=== PATIENT | female | born 1960 | race Caucasian/White ===

== ENCOUNTER → 2016-09-14 | Outpatient (CLI) | payer MEDICARE ==
--- NOTE | 2016-09-15 14:42 | XR ---
EXAMINATION TYPE: XR chest 2V DATE OF EXAM: 09/14/2016 4:10 PM COMPARISON: 04/07/2016 HISTORY: Cough FINDINGS: The lungs are clear and there is no pneumothorax, pleural effusion, or focal pneumonia. Hypertrophi c change of the spine. Hyperinflation suggests COPD. Surgical clip overlying the left breast. IMPRESSION: 1. No acute process.
== END | disposition home or self-care (01) ==
LOC: RADXRYALE 15:27
PROVIDERS: ATTEND Internal Medicine
DX: R05 Cough (principal)
CPT/HCPCS: 71020

== ENCOUNTER → 2017-12-02 | Outpatient (CLI) | payer MEDICARE ==
--- NOTE | 2017-12-02 10:08 | CT ---
EXAMINATION TYPE: CT chest w con DATE OF EXAM: 12/02/2017 COMPARISON: 07/11/2017 HISTORY: Solitary lung nodule CT DLP: 205.2 mGycm Automated exposure control for dose reduction was used. CONTRAST: CT scan of the chest is performed with IV Contrast, patient injected with 100 mL of Isovue 300. FINDINGS: LUNGS: There is a linear scar noted in the region of the lingula. No distinct nodule is appreciated. Mild dependent atelectasis right lung base. No concerning pulmonary nodule or mass. There is no pleur al effusion or pneumothorax seen. The tracheobronchial tree is patent. MEDIASTINUM: There are no greater than 1 cm hilar or mediastinal lymph nodes. No pericardial effusi on is seen. Thoracic aorta is of normal caliber. The heart is not enlarged. UPPER ABDOMEN: No significant abnormality appreciated. OTHER: No additional significant abnormality is seen. IMPRESSION: 1. Linear parenchymal scar in the region of the lingula without evidence for pulmonary nodule.
== END | disposition home or self-care (01) ==
LOC: RADCTMAIN 08:37
PROVIDERS: ATTEND Internal Medicine Critical Care Medicine
DX: J98.4 Other disorders of lung (principal)
CPT/HCPCS: 71260; Q9967

== ENCOUNTER → 2019-01-15 | Outpatient (CLI) | payer MEDICARE ==
--- NOTE | 2019-01-15 12:54 | CTL ---
EXAMINATION TYPE: CT Low Dose Lung DATE OF EXAM ORDERED: 01/15/2019 HISTORY: Long-term tobacco use. Lung cancer screening CT DLP: 62.[address] CTDI: 1.9 mGy Automated exposure control for dose reduction was used. SCREENING VISIT: Second visit COMPARISON: Low-dose lung screening CT July 11, 2017. Chest CT December 02, 2017 TECHNIQUE: Low dose computed tomography scan was performed through the chest at 1 mm thick sections a nd reconstructed images in the coronal plane at [address] DIAGNOSTIC QUALITY: Satisfactory FINDINGS: LUNG NODULES: Present, detailed below: Stable 2 mm subpleural nodule lateral right upper lobe axial image 54. Stable 8 x 4 mm nodular scarring in the lingula axial image 154 with adjacent linear scarring extensi on redemonstrated. New 3 mm nodule axial image 103 anterolateral left mid lung. Stable calcified 2 to 3 mm nodule or granuloma axial image 93. LUNGS: COPD: Severity: Mild to moderate Fibrosis: Severity: Mild scattered Lymph nodes: None Other findings: None. BILATERAL PLEURAL SPACE: Effusion: None. Calcification: None. Thickening: None. Pneumothorax: None. HEART: Heart Size: Normal Coronary calcification: None Pericardial effusion: None OTHER FINDINGS: Upper abdomen: None Bony thorax: Mild multilevel spurring Supraclavicular region: None Other: Dystrophic calcification likely from left-sided excisional biopsy lateral left breast placemen t 111 is redemonstrated. IMPRESSION: Stable small nodules and areas of nodular scarring. New [address] FOLLOW UP [address] CHEST RECOMMENDATION: Annual low-dose lung screening CT. CT LUNG RAD: Lung-Rad 2 Benign Appearance or Behavior
== END | disposition home or self-care (01) ==
LOC: RADCTMAIN 11:09
PROVIDERS: ATTEND Family Medicine
DX: Z12.2 Encounter for screening for malignant neoplasm of respiratory organs (principal); R91.8 Other nonspecific abnormal finding of lung field; J98.4 Other disorders of lung; Z87.891 Personal history of nicotine dependence

== ENCOUNTER → 2019-05-07 | Outpatient (CLI) | payer MEDICARE ==
--- NOTE | 2019-05-07 11:30 | MR ---
EXAMINATION TYPE: MR brain wo/w con DATE OF EXAM: 05/07/2019 COMPARISON: None HISTORY: Headache, unusual duration TECHNIQUE: Multiplanar, multisequence images of the brain and brainstem is performed without and with IV contras t, utilizing 5.5 mL intravenous Gadavist . FINDINGS: Diffusion weighted images demonstrate no evidence of a recent infarct or other diffusion ab normality. There is mild generalized degenerative change. There is a few scattered areas of focal abnormal signa l the white matter. All measure less than 5 mm. No enhancing lesions. Midline structures demonstrate normal morphology. The craniocervical junction appears within normal limits. Post contrast images demonstrate no abnormal enhancement. The dural venous sinuses appear pa tent. Changes of mild chronic sinusitis. IMPRESSION: 1. Minimal nonspecific white matter changes in the differential diagnosis includes remote microvascul ar ischemia, migraine headaches, hypertension, demyelinating process not excluded.
== END | disposition home or self-care (01) ==
LOC: RADMRIMAIN 09:50
PROVIDERS: ATTEND Physician Assistant
DX: R51 Headache (principal)
CPT/HCPCS: 70553; A9585

== ENCOUNTER → 2020-06-26 | Outpatient (CLI) | payer MEDICARE ==
--- NOTE | 2020-06-26 20:46 | US ---
EXAMINATION TYPE: US carotid duplex BILAT DATE OF EXAM: 06/26/2020 COMPARISON: MR, CT CLINICAL HISTORY: R42 Dizziness. Dizziness. Smoker. EXAM MEASUREMENTS: RIGHT: Peak Systolic Velocity (PSV) cm/sec ----- Right CCA: 61.6 ----- Right ICA: 88.3 ----- Right ECA: 63.0 ICA/CCA ratio: 1.4 RIGHT: End Diastole cm/sec ----- Right CCA: 21.5 ----- Right ICA: 32.2 ----- Right ECA: 17.9 LEFT: Peak Systolic Velocity (PSV) cm/sec ----- Left CCA: 62.2 ----- Left ICA: 84.0 ----- Left ECA: 51.5 ICA/CCA ratio: 1.4 LEFT: End Diastole cm/sec ----- Left CCA: 21.2 ----- Left ICA: 34.3 ----- Left ECA: 14.4 VERTEBRALS (direction of flow): Right Vertebral: Antegrade Left Vertebral: Antegrade Rhythm: Normal Intimal thickening seen bilaterally. Left ECA quickly dives posterior. No elevated velocities at this time. Hypoechoic area seen within right neck measurin.9 x 0.6 x 0.5 cm. Hypoechoic area with hyperechoic center seen left neck measurin.5 x 0.5 x 0.3 cm. IMPRESSION: 1. Intimal thickening present without evidence of flow-limiting stenosis based on velocities. 2. There may be a couple small lymph nodes present within the neck. Criteria for Assigning % of Stenosis / Diameter reduction (Estimation based on the indirect measurements of the internal carotid artery velocities (ICA PSV). 1. Normal (no stenosis)=ICA PSV < 125 cm/s: ratio < 2.0: ICA EDV<40 cm/s. 2. Less than 50% stenosis=ICA PSV < 125 cm/s: ratio < 2.0: ICA EDV<40 cm/s. 3. 50 to 69% stenosis=ICA PSV of 125 to 230 cm/s: ration 2.0 ? 4.0: ICA EDV 40-100 cm/s. 4. Greater than 70% stenosis to near occlusion= ICA PSV > 230 cm/s: ratio > 4.0: ICA EDV > 100 cm/s. 5. Near occlusion= ICA PSV velocities may be low or undetectable: variable ratio and ICA EDV. 6. Total occlusion=unable to detect flow.
== END | disposition home or self-care (01) ==
LOC: RADUSWWP 16:53
PROVIDERS: ATTEND Psychiatry & Neurology Neurology
DX: I77.89 Other specified disorders of arteries and arterioles (principal)
CPT/HCPCS: 93880

== ENCOUNTER 2020-10-17 08:32 | Day surgery (SDC) | payer MEDICARE ==
[2020-10-15 14:26] VITALS: BMI 24.4
[~2020-10-17 08:32] MED LIST: LACTATED RINGERS 1,000 ML IV SCH
[2020-10-17] MEDS ORDERED: LIDOCAINE 1% (10MG/ML) FOR IV START INTRADERMA ONE (09:36)
[2020-10-17 09:40] VITALS: RESP 20; TEMP 97.3
[2020-10-17] MEDS ORDERED: PROPOFOL 10 MG/ML 20 ML VIAL IV ONE (09:48)
[2020-10-17] MEDS ORDERED: LIDOCAINE 1% INJ 10MG/ML (20 ML MDV) ONE (09:48)
--- NOTE | 2020-10-17 09:54 | P.GSHP ---
History of Present Illness H&P Date: 10/17/20 Chief Complaint: GERD, dysphagia This a 5-year-old female who presents today for EGD. She's been issues GERD and dysphagia. Past Medical History Past Medical History: Asthma, Cancer, COPD, GERD/Reflux Additional Past Medical History / Comment(s): osteopenia,migraines,left breast CA-2008 received chemo and radiation,cervical dysplasia History of Any Multi-Drug Resistant Organisms: None Reported Past Surgical History: Breast Surgery, Orthopedic Surgery Additional Past Surgical History / Comment(s): never burned neck,left thumb and carpel tunnel, left breast lumpectomy Past Anesthesia/Blood Transfusion Reactions: No Reported Reaction Smoking Status: Current every day smoker - Past Family History Mother Family Medical History: Myocardial Infarction (DC) Brother(s) Family Medical History: Coronary Artery Disease (CAD) Sister(s) Family Medical History: Coronary Artery Disease (CAD) Father Family Medical History: Myocardial Infarction (DC) Medications and Allergies Home Medications Medication Instructions Recorded Confirmed Type Albuterol Nebulized (Conc) 2.5 mg INHALATION Q6H PRN 10/15/20 10/17/20 History [Ventolin Nebulized (Conc)] Alendronate Sodium [Binosto] 70 mg PO WEEKLY 10/15/20 10/17/20 History Atorvastatin [Lipitor] 40 mg PO HS 10/15/20 10/17/20 History Budesonide/Formoterol Fumarate 2 puff INHALATION BID 10/15/20 10/17/20 History [Symbicort 160-4.5 Mcg Inhaler] Calcium Carbonate/Vitamin D3 1 each PO DAILY 10/15/20 10/17/20 History [Calcium 600-Vit D3 20 Mcg (800 Iu)] DULoxetine HCL [Cymbalta] 30 mg PO HS 10/15/20 10/17/20 History DULoxetine HCL [Cymbalta] 60 mg PO QAM 10/15/20 10/17/20 History Ergocalciferol [Vitamin D2 (1250 1,250 mcg PO WEEKLY 10/15/20 10/17/20 History Mcg = 50441 Iu)] Fish Oil/Dha/Epa [Fish Oil 1,200 1 each PO BID 10/15/20 10/17/20 History mg Fish Oil] Fluticasone Nasal [place] [Flonase 1 spray EA NOSTRIL BID 10/15/20 10/17/20 History Nasal [place]] HYDROcodone/APAP 5-325MG [[place] 1 tab PO DAILY PRN 10/15/20 10/17/20 History 5-325] Ibuprofen 600 mg PO Q8H PRN 10/15/20 10/17/20 History Montelukast Sodium [Singulair] 10 mg PO QAM 10/15/20 10/17/20 History Umeclidinium [place] [Incruse 1 puff INHALATION 1600 10/15/20 10/17/20 History Ellipta] Vitamin E 400 unit PO DAILY 10/15/20 10/17/20 History Zonisamide [Zonegran] 100 mg PO BID 10/15/20 10/17/20 History Allergies Allergy/AdvReac Type Severity Reaction Status Date / Time aspirin AdvReac severe Verified 10/17/20 09:17 gastritis Surgical - Exam Vital Signs Temp Pulse Resp BP Pulse Ox 97.3 F L 89 20 148/83 96 10/17/20 09:39 10/17/20 09:39 10/17/20 09:39 10/17/20 09:39 10/17/20 09:39 - General well developed, well nourished, no distress - Eyes PERRL - ENT normal pinna - Neck no masses - Respiratory normal expansion - Cardiovascular Rhythm: regular - Abdomen Abdomen: soft, non tender Assessment and Plan Assessment: GERD, dysphagia. We'll perform EGD.
--- NOTE | 2020-10-17 10:01 | P.OP ---
Date of Procedure: 10/17/20 Preoperative Diagnosis: GERD Postoperative Diagnosis: Antral gastritis Esophagitis Procedure(s) Performed: EGD Anesthesia: MAC Surgeon: Sd Hauser Pathology: other (Antrum, esophagus) Condition: stable Description of Procedure: The patient's placed on the endoscopy table in the lateral position. She received IV sedation. The gastroscope placed oropharynx passed in the esophagus and stomach. Scope was then placed through the pylorus. First and second portion duodenum appeared normal. Scope was then brought back the antrum and this appeared mildly inflamed. Biopsies performed. Scope was then retroflexed and the meters stomach appeared normal. There was a very small hiatal hernia. The GE junction was at 39 7 is. The distal esophagus appeared inflamed and a biopsies performed. The proximal esophagus appeared normal. Scope was withdrawn for patient.
[2020-10-17 10:17] VITALS: BP 144/91; PULSE 84
== END 2020-10-17 10:49 | disposition home or self-care (01) ==
LOC: ORWHC2ENDO 08:32
PROVIDERS: ATTEND Surgery
DX: K31.9 Disease of stomach and duodenum, unspecified (principal); K29.70 Gastritis, unspecified, without bleeding; K21.00 Gastro-esophageal reflux disease with esophagitis, without bleeding; K44.9 Diaphragmatic hernia without obstruction or gangrene; J44.9 Chronic obstructive pulmonary disease, unspecified; M85.80 Other specified disorders of bone density and structure, unspecified site; G43.909 Migraine, unspecified, not intractable, without status migrainosus; F17.200 Nicotine dependence, unspecified, uncomplicated; Z79.83 Long term (current) use of bisphosphonates; Z79.1 Long term (current) use of non-steroidal anti-inflammatories (NSAID); Z79.891 Long term (current) use of opiate analgesic; Z79.51 Long term (current) use of inhaled steroids; Z79.899 Other long term (current) drug therapy; Z85.3 Personal history of malignant neoplasm of breast; Z92.21 Personal history of antineoplastic chemotherapy; Z92.3 Personal history of irradiation; Z87.410 Personal history of cervical dysplasia; Z82.49 Family history of ischemic heart disease and other diseases of the circulatory system; Z88.6 Allergy status to analgesic agent; Z98.890 Other specified postprocedural states
CPT/HCPCS: 88305; 43239; J2001; J2704

== ENCOUNTER → 2021-11-09 | Outpatient (CLI) | payer MEDICARE ==
[2021-11-10 13:37] LABS: Coronavirus SARS CoV-2 Not Detected (Not Detected)
== END | disposition home or self-care (01) ==
LOC: LABWHC1 11:50
PROVIDERS: ATTEND Psychiatry & Neurology Neurology
DX: Z01.812 Encounter for preprocedural laboratory examination (principal); Z20.822 Contact with and (suspected) exposure to COVID-19

== ENCOUNTER → 2022-04-09 | Outpatient (CLI) | payer MEDICARE, OTHER ==
[2022-04-09 12:57] VITALS: BP 131/84; PULSE 84; RESP 17; TEMP 97.9
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
== END ==
LOC: WWCWWP 12:41
PROVIDERS: ATTEND Surgery
DX: Z08 Encounter for follow-up examination after completed treatment for malignant neoplasm (principal); R92.8 Other abnormal and inconclusive findings on diagnostic imaging of breast; Z85.3 Personal history of malignant neoplasm of breast; F32.A Depression, unspecified; I10 Essential (primary) hypertension; M54.9 Dorsalgia, unspecified; Z98.890 Other specified postprocedural states; F17.210 Nicotine dependence, cigarettes, uncomplicated; J44.9 Chronic obstructive pulmonary disease, unspecified; G43.909 Migraine, unspecified, not intractable, without status migrainosus; Z79.51 Long term (current) use of inhaled steroids; Z88.6 Allergy status to analgesic agent

== ENCOUNTER → 2022-04-26 | Outpatient (CLI) | payer MEDICARE, OTHER ==
--- NOTE | 2022-04-26 09:20 | USB ---
Patient History: Menarche at age 10. Risk Values: Geno 5 year model risk: 1.2%. NCI Lifetime model risk: 5.5%. Technique: Method: Targeted. Prior Study Comparison: 08/16/1997 Bilateral Screening Mammogram, [facility]. 02/13/2001 Bilateral Screening Mammogram, [facility]. 02/28/2001 Right Special View Mammogram, [facility]. Findings: The axilla of the right breast was scanned. Targeted scanning of the right axilla. Patient has right-sided ultrasound-guided biopsy scheduled for 2 days from now. There are benign-appearing lymph nodes in the left axilla, largest measuring 8 x 6 x 5 mm and 11 x 10 x 5 mm. No abnormal cortical thickening is seen. Overall Assessment: Suspicious, BI-RAD 4 Management: Ultrasound Core Biopsy of the right breast. Proceed with planned ultrasound-guided core needle biopsy of the right breast. No suspicious right axillary lymph nodes are seen. Electronically signed and approved by: Larry Grullon M.D. Radiologist
== END | disposition home or self-care (01) ==
LOC: RADUSWWP 08:25
PROVIDERS: ATTEND Surgery
DX: Z85.3 Personal history of malignant neoplasm of breast (principal)

== ENCOUNTER → 2022-07-15 | Outpatient (CLI) | payer MEDICARE, OTHER ==
[2022-07-15 15:16] VITALS: BP 118/78; PULSE 89; RESP 18; TEMP 98.3
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
== END | disposition home or self-care (01) ==
LOC: WWCWWP 14:48
PROVIDERS: ATTEND Surgery
DX: Z53.9 Procedure and treatment not carried out, unspecified reason (principal)

== ENCOUNTER → 2022-09-16 | Outpatient (CLI) | payer MEDICARE, OTHER ==
--- NOTE | 2022-09-16 13:26 | CTL ---
EXAMINATION TYPE: CT Low Dose Lung DATE OF EXAM ORDERED: 09/16/2022 HISTORY: . Lung cancer screening CT DLP: 1.[address] CTDI: 63.50 mGy Automated exposure control for dose reduction was used. SCREENING VISIT: COMPARISON: 01/15/2019 TECHNIQUE: Low dose computed tomography scan was performed through the chest at 1 mm thick sections a nd reconstructed images in multiple planes at 1 mm and [address] DIAGNOSTIC QUALITY: Satisfactory FINDINGS: Stable 2 mm subpleural nodule right upper lobe. Additional new 2 mm nodule right upper lobe subpleural anterior segment. There is a 4.4 mm subpleural nodule lingular segment left upper lobe axial image 192 retrospectively stable from prior exam. Calcified 2 mm nodule left upper lobe has a benign appearance. Nodular appearing consolidation scarring favored over pulmonary nodule lingular segment left upper lo be stable prior exam. There is mild emphysematous changes. Interlobular septal thickening at the lung bases posteriorly ass ociated with mild chronic pulmonary fibrosis. No pleural effusion, pneumothorax or focal pneumonia. Heart size normal. Aorta normal caliber with mi ld atherosclerotic changes. Hypertrophic and degenerative changes spine. Calcification within the breast again noted and stable. IMPRESSION: 1. COPD with multiple stable-appearing nodules with one new additional 3 mm nodule right lung apex. F indings are likely benign. CT LUNG RAD AND CT CHEST RECOMMENDATION: Lung-Rad 2 Benign Appearance or Behavior: Continue annual sc reening with LDCT in 12 months.
== END | disposition home or self-care (01) ==
LOC: RADCTMAIN 11:59
PROVIDERS: ATTEND Internal Medicine Critical Care Medicine
DX: Z12.2 Encounter for screening for malignant neoplasm of respiratory organs (principal); J44.9 Chronic obstructive pulmonary disease, unspecified; R91.8 Other nonspecific abnormal finding of lung field; Z87.891 Personal history of nicotine dependence
CPT/HCPCS: 71271

== ENCOUNTER → 2022-12-01 | Outpatient (CLI) | payer MEDICARE ==
--- NOTE | 2022-12-01 15:27 | USB ---
Reason for Exam: Follow-up at short interval from prior study. Patient History: Menarche at age 10. Postmenopausal. Breast cancer, left, age 47. 2007, Lumpectomy on the Left side. 04/28/2022, Benign US biopsy breast VAD RT on the right side. Technique: Method: Targeted. Prior Study Comparison: 07/09/2021 Bilateral MG diagnostic mammo w CAD AZIZA - 2, [facility]. 04/28/2022 Right MG diagnostic mammo RT wo [facility], [facility]. 07/15/2022 Bilateral MG 3D diag mammo w/cad AZIZA, [facility]. Findings: The upper outer quadrant of the right breast, the axilla of the right breast and the retroareolar of the right breast were scanned. No solid or cystic masses are identified.. Postbiopsy changes noted right breast. Overall Assessment: Benign, BI-RAD 2 Management: Screening Mammogram of both breasts in 6 months. A clinical breast exam by your physician is recommended on an annual basis and results should be correlated with mammographic findings. This exam should not preclude additional follow-up of suspicious palpable abnormalities. Results were given to the patient verbally at the time of exam. Electronically signed and approved by: Joseph Garcia M.D. Radiologis
== END | disposition home or self-care (01) ==
LOC: RADUSWWP 14:48
PROVIDERS: ATTEND Family Medicine
DX: R92.8 Other abnormal and inconclusive findings on diagnostic imaging of breast (principal); Z78.0 Asymptomatic menopausal state

== ENCOUNTER → 2023-02-18 | Outpatient (CLI) | payer MEDICARE ==
--- NOTE | 2023-02-18 14:44 | CT ---
EXAMINATION TYPE: CT abdomen pelvis w con DATE OF EXAM: 02/18/2023 COMPARISON: None HISTORY: lump to posterior RLQ. History of breast cancer CT DLP: 417.1 mGycm Automated exposure control for dose reduction was used. TECHNIQUE: Helical acquisition of images was performed from the lung bases through the pelvis. CONTRAST: Performed with Oral Contrast and with IV Contrast, patient injected with 100 mL of Isovue 300. FINDINGS: The lung bases are clear. The gallbladder is normal without pericholecystic fluid, wall thickening, distention or gallstones. There is no focal mass or organomegaly involving the liver, pancreas, spleen or adrenal glands. The kidneys enhance symmetrically and there is no solid renal mass or hydronephrosis. There is no retroperitoneal adenopathy or hemorrhage in the caliber the abdominal aorta is normal. There is no free intraperitoneal air or fluid. The bowel loops are normal in caliber and there is no dilatation or obstruction. There is no pelvic mass or adenopathy. The osseous structures are intact. There is a cylindrical partly metallic implanted device in the subcutaneous tissues of the upper righ t back the level of the right kidney. IMPRESSION: 1. Right upper back subcutaneous implant device. 2. No other significant abnormality seen.
== END | disposition home or self-care (01) ==
LOC: RADCTMAIN 12:04
PROVIDERS: ATTEND Family Medicine
DX: R19.09 Other intra-abdominal and pelvic swelling, mass and lump (principal)
CPT/HCPCS: 74177; Q9967

== ENCOUNTER → 2023-07-21 | Outpatient (CLI) | payer MEDICARE, OTHER ==
[2023-07-21 14:51] VITALS: PULSE 106; RESP 16; TEMP 98
== END | disposition home or self-care (01) ==
LOC: WWCWWP 13:43
PROVIDERS: ATTEND Surgery
DX: J44.89 Other specified chronic obstructive pulmonary disease (principal); K21.9 Gastro-esophageal reflux disease without esophagitis; F41.9 Anxiety disorder, unspecified; F32.A Depression, unspecified; F17.200 Nicotine dependence, unspecified, uncomplicated; G43.909 Migraine, unspecified, not intractable, without status migrainosus; Z92.3 Personal history of irradiation; Z85.3 Personal history of malignant neoplasm of breast; Z87.39 Personal history of other diseases of the musculoskeletal system and connective tissue; Z87.410 Personal history of cervical dysplasia; Z88.6 Allergy status to analgesic agent

== ENCOUNTER → 2023-07-21 | Outpatient (CLI) | payer MEDICARE, OTHER ==
--- NOTE | 2023-07-21 14:08 | MM ---
Reason for Exam: Follow-up at short interval from prior study. Last screening mammogram was performed 12 month(s) ago. Patient History: Menarche at age 10. First Full-Term at age 26. Postmenopausal. Breast cancer, left, age 47. Previous chest radiation therapy at age 47. Previous chemotherapy at age 47. 2007, Lumpectomy on the Left side. 04/28/2022, Benign US biopsy breast VAD RT on the right side. Prior Study Comparison: 06/13/2019 Bilateral MG diagnostic mammo w CAD AZIZA - 2, [facility]. 07/02/2020 Bilateral MG diagnostic mammo w CAD AZIZA - 2, [facility]. 07/15/2022 Bilateral MG 3D diag mammo w/cad AZIZA, [facility]. 12/01/2022 Right US breast limited RT, [facility]. Tissue Density: The breast tissue is almost entirely fat. Findings: Analyzed By CAD. Benign left breast calcifications with post treatment change with surgical clips. Right breast clip. No new suspicious masses, calcifications or distortions. I. Overall Assessment: Benign, BI-RAD 2 Management: Screening Mammogram of both breasts in 1 year. Results were given to the patient verbally at the time of exam. Patient should continue monthly self-breast exams. A clinical breast exam by your physician is recommended on an annual basis. This exam should not preclude additional follow-up of suspicious palpable abnormalities. Note on Geno scores and lifetime risk: 1. A Geno score greater than 3% is considered moderate risk. If this is the case, consider specialist referral to assess eligibility for a risk reducing agent. 2. If overall lifetime risk for the development of breast cancer is 20% or higher, the patient may qualify for future screening with alternating mammogram and breast MRI. Electronically signed and approved by: Ned Heard DO
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
== END | disposition home or self-care (01) ==
LOC: RADMAMWWP 13:41
PROVIDERS: ATTEND Surgery
DX: R92.333 Mammographic heterogeneous density, bilateral breasts (principal); Z85.3 Personal history of malignant neoplasm of breast; Z78.0 Asymptomatic menopausal state
CPT/HCPCS: 77066; G0279; 77062

== ENCOUNTER 2023-08-06 17:03 | Emergency (ER) | payer MEDICARE, OTHER ==
[2023-08-06] MEDS ORDERED: LIDOCAINE 1% INJ 10MG/ML (20 ML MDV) SQ ONE (18:03)
[2023-08-06 18:19] VITALS: TEMP 98.5
--- NOTE | 2023-08-06 18:28 | ED ---
Fall HPI - General Chief Complaint: Fall Stated Complaint: facial lac Time Seen by Provider: 08/06/23 18:02 Source: patient Mode of arrival: ambulatory - History of Present Illness Initial Comments: 62-year-old female presenting to the ED with a chief complaint of fall. Patient states that she tripped and fell forward, landing on the right side of her chin. No LOC at this time. No other injuries. Patient denies being on blood thinners. Per acting her normal self. No dizziness or lightheadedness prior to fall. No chest pain shortness of breath. No other complaints. - Related Data Home Medications Medication Instructions Recorded Confirmed Alendronate Sodium [Binosto] 70 mg PO WEEKLY 10/15/20 07/21/23 Atorvastatin [Lipitor] 40 mg PO HS 10/15/20 07/21/23 Calcium Carbonate/Vitamin D3 1 each PO DAILY 10/15/20 07/21/23 [Calcium 600-Vit D3 20 Mcg (800 Iu)] DULoxetine HCL [Cymbalta] 30 mg PO HS 10/15/20 07/21/23 DULoxetine HCL [Cymbalta] 60 mg PO QAM 10/15/20 07/21/23 Fish Oil/Dha/Epa [Fish Oil 1,200 1 each PO BID 10/15/20 07/21/23 mg Fish Oil] Fluticasone Nasal [place] [Flonase 1 spray EA NOSTRIL BID 10/15/20 07/21/23 Nasal [place]] Ibuprofen 600 mg PO Q8H PRN 10/15/20 07/21/23 Vitamin E 400 unit PO DAILY 10/15/20 07/21/23 Ascorbic Acid [Vitamin C] 1,000 mg PO DAILY 04/09/22 07/21/23 Budesonide-Formot 160-4.5 Mcg 1 puff INHALATION DIRECTED PRN 04/09/22 07/21/23 [Symbicort 160-4.5 Mcg Inhaler] Cyclobenzaprine [Flexeril] 5 mg PO DIRECTED PRN 04/09/22 07/21/23 Meclizine [Antivert] 25 mg PO DAILY 04/09/22 07/21/23 Montelukast [Singulair] 10 mg PO DAILY 04/09/22 07/21/23 Omeprazole 40 mg PO DIRECTED PRN 04/09/22 07/21/23 Ondansetron [Zofran] 4 mg PO DIRECTED PRN 04/09/22 07/21/23 Umeclidinium [place] [Incruse 62.5 mcg INHALATION DIRECTED PRN 04/09/22 07/21/23 Ellipta] Vitamin C/Biotin [Hair, Skin and 2 cap PO DAILY 04/09/22 07/21/23 Nails Chew] Zinc 50 mg PO DAILY 04/09/22 07/21/23 lisinopriL [Zestril] 10 mg PO DAILY 04/09/22 07/21/23 Allergies Allergy/AdvReac Type Severity Reaction Status Date / Time aspirin AdvReac severe Verified 08/06/23 18:02 gastritis Review of Systems ROS Statement: Those systems with pertinent positive or pertinent negative responses have been documented in the HPI. ROS Other: All systems not noted in ROS Statement are negative. Past Medical History Past Medical History: Asthma, Cancer, COPD, GERD/Reflux Additional Past Medical History / Comment(s): osteopenia,migraines,left breast CA-2007 received chemo and radiation,cervical dysplasia History of Any Multi-Drug Resistant Organisms: None Reported Past Surgical History: Breast Surgery, Orthopedic Surgery Additional Past Surgical History / Comment(s): never burned neck,left thumb and carpel tunnel, left breast lumpectomy Past Anesthesia/Blood Transfusion Reactions: No Reported Reaction Past Psychological History: Anxiety, Depression Smoking Status: Current every day smoker Past Alcohol Use History: Occasional Past Drug Use History: None Reported - Past Family History Mother Family Medical History: Myocardial Infarction (GA) Brother(s) Family Medical History: Coronary Artery Disease (CAD) Sister(s) Family Medical History: Coronary Artery Disease (CAD) Father Family Medical History: Myocardial Infarction ([place]) General Exam Limitations: no limitations General appearance: alert, in no apparent distress Head exam: Present: other (Laceration the patient's chin. No kendrick signs or raccoons eyes.) Eye exam: Present: normal appearance Respiratory exam: Present: normal lung sounds bilaterally Cardiovascular Exam: Present: regular rate, normal rhythm GI/Abdominal exam: Present: soft Neurological exam: Present: alert, oriented X3, CN II-XII intact, other (Strength And sensation equal and intact of bilateral upper and lower extremities. No difficulties ambulating.) Skin exam: Present: warm, dry Course Vital Signs 11/25/23 17:59 Temperature 98.5 F Pulse Rate 97 Respiratory 20 Rate Blood Pressure 110/72 O2 Sat by Pulse 98 Oximetry Medical Decision Making - Medical Decision Making Was pt. sent in by a medical professional or institution (NILAY Tripathi, PUBLIC WORKS MANAGER, urgent care, hospital, or correction...) When possible be specific @ -No Did you speak to anyone other than the patient for history (EMS, parent, family, police, friend...)? What history was obtained from this source @ -No Did you review nursing and triage notes (agree or disagree)? Why? @ -I reviewed and agree with nursing and triage notes Were old charts reviewed (outside hosp., previous admission, EMS record, old EKG, old radiological studies, urgent care reports/EKG's, correction records)? Report findings @ -No old charts were reviewed Differential Diagnosis (chest pain, altered mental status, abdominal pain women, abdominal pain men, vaginal bleeding, weakness, fever, dyspnea, syncope, headache, dizziness, GI bleed, back pain, seizure, CVA, palpatations, mental health, musculoskeletal)? @ -Acute traumatic hemorrhage, acute fracture. This is not meant to be an all- inclusive list. EKG interpreted by me (3pts min.). @ -None X-rays interpreted by me (1pt min.). @ -None done CT interpreted by me (1pt min.). @ -CT of the brain and C-spine interpreted by me showing no evidence of fracture or other acute findings. U/S interpreted by me (1pt. min.). @ -None done What testing was considered but not performed or refused? (CT, X-rays, U/S, labs)? Why? @ -None What meds were considered but not given or refused? Why? @ -None Did you discuss the management of the patient with other professionals (professionals i.e. NILAY Tripathi, PUBLIC WORKS MANAGER, lab, RT, psych nurse, social science teacher, auto brake technician, teacher, contracts officer, nurse outreach case manager)? Give summary @ -No Was smoking cessation discussed for >3mins.? @ -No Was critical care preformed (if so, how long)? @ -No Were there social determinants of health that impacted care today? How? (Homelessness, low income, unemployed, alcoholism, drug addiction, transportation, low edu. Level, literacy, decrease access to med. care, [facility], rehab)? @ -No Was there de-escalation of care discussed even if they declined (Discuss DNR or withdrawal of care, Hospice)? DNR status @ -No What co-morbidities impacted this encounter? (DM, HTN, Smoking, COPD, CAD, Cancer, CVA, ARF, Chemo, Hep., AIDS, mental health diagnosis, sleep apnea, morbid obesity)? @ -None Was patient admitted / discharged? Hospital course, mention meds given and route, prescriptions, significant lab abnormalities, going to OR and other pertinent info. @ -Discharge 62-year-old female presenting to the ED status post mechanical fall with injury to her chin. This was repaired. For further details please see seizure note. Following wound was covered with antibiotic ointment and dressed. Neuro exam at this time unremarkable with good exam. Nerves II through XII and no strength or sensation deficits of bilateral upper and lower extremity. Discharged home in stable condition. Discussed return precautions with patient verbalizes agreement. Undiagnosed new problem with uncertain prognosis? @ -No Drug Therapy requiring intensive monitoring for toxicity (Heparin, Nitro, Insulin, Cardizem)? @ -No Were any procedures done? @ -No Diagnosis/symptom? @ -s/p mechanical fall, laceration Acute, or Chronic, or Acute on Chronic? @ -Acute Uncomplicated (without systemic symptoms) or Complicated (systemic symptoms)? @ -Uncomplicated Side effects of treatment? @ -No Exacerbation, Progression, or Severe Exacerbation? @ -No Poses a threat to life or bodily function? How? (Chest pain, [place], [place], pneumonia, PE, COPD, DKA, ARF, appy, cholecystitis, CVA, Diverticulitis, Homicidal, Suicidal, threat to staff... and all critical care pts) @ -No Disposition Clinical Impression: Laceration, Head injury Disposition: HOME SELF-CARE Condition: Good Instructions (If sedation given, give patient instructions): Fall Prevention for Older Adults (ED) Additional Instructions: Please return to the Emergency Department if symptoms worsen or any other concerns. Return in 4-5 days for suture removal. Monitor for signs of infection. Is patient prescribed a controlled substance at d/c from ED?: No Referrals: Ileana Sen DO [Primary Care Provider] - 1-2 days Time of Disposition: 19:49
--- NOTE | 2023-08-06 18:54 | CT ---
EXAMINATION TYPE: CT brain cspine wo con CT DLP: 1268.3 mGycm, Automated exposure control for dose reduction was used. DATE OF EXAM: 08/06/2023 6:30 PM COMPARISON: None. CLINICAL INDICATION:Female, 62 years old with history of pain; FALL, open wound to mandible. TECHNIQUE: Brain: Multiple axial CT images of the brain were obtained without IV contrast. Cspine: Axial CT images from the skull base to the inferior aspect of T2 we obtained without intraven ous contrast. Coronal and sagittal reformatted images were also reviewed. FINDINGS: Brain: Extra-axial spaces: No abnormal extra-axial fluid collections. Ventricular system: Appear dilated in proportion to the degree of cerebral atrophy. Cerebral parenchyma: No increased attenuation to suggest acute intraparenchymal hemorrhage. The gra y-white matter interface appears maintained. Mild generalized brain atrophy. Scattered hypoattenuat ing areas are seen within the cerebral white matter, nonspecific but most often seen with chronic vasquez rovascular ischemic changes; mild in degree. Cerebellum: No acute abnormality. Mass effect: No evidence of mass effect or midline shift. Intracranial vasculature: Unremarkable Soft tissues: Normal. Visualized orbits: Orbital contents appear grossly intact. Calvarium/osseous structures: No evidence of calvarial fracture. Paranasal sinuses and mastoid air cells: Small polypoid mucosal thickening partially seen along the m edial wall of the left maxillary sinus, and in a right posterior ethmoid air cell. No significant flu id accumulation. Other: Partially seen radiodensity at the posterior aspect of the spinal canal C1-C2 level, compatibl e with tip of a neural stimulator based on shop supervisor view. MRI is more sensitive for detecting acute processes such as infarct, and may be considered if clinica lly warranted. Cervical spine: Fracture: None seen. Osseous structures, spinal canal/neural foramina: Multilevel degenerative disc disease changes with e ndplate spurring, disc osteophyte complexes, facet arthropathy; this is overall mild/moderate in degr ee. This is greatest at the C4-C5, C5-C6, C6-C7 levels where there is at least mild to moderate spina l canal stenosis and left greater than right neural foraminal stenosis. Vertebral alignment: No traumatic malalignment. Straightening and reversal of the normal cervical jessica dosis, can be due to pain, spasm, degenerative changes, presence of cervical collar. Trace anterolist hesis C3 on C4, appears degenerative. Neck soft tissues: No acute finding.. Neurostimulator leads enter the spinal canal at the T1 level, a scending before terminating in the posterior canal at the C1-C2 level Other: Lung apices show no acute infiltrate or pneumothorax. Moderate emphysematous changes. IMPRESSION: CT head: 1. No acute intracranial CT abnormality. Mild atrophy and chronic microvascular ischemic changes. CT cervical spine: 1. No evidence of cervical spine fracture or traumatic malalignment. 2. Mild/moderate cervical spondylosis. 3. Moderate pulmonary emphysematous changes.
[2023-08-06] MEDS ORDERED: DIPH,PERTUS(ACELL)TETVAC-LF 0.5 ML VIAL IM ONE (19:08)
[2023-08-06] MEDS ORDERED: ACETAMINOPHEN TAB 500 MG TAB PO STA (19:09)
[2023-08-06] MEDS ORDERED: BACITRACIN OINT 1 EACH PACKET TOPICAL ONE (19:13)
[2023-08-06 20:23] VITALS: BP 127/73; PULSE 66; RESP 18
== END 2023-08-06 20:00 | disposition home or self-care (01) ==
LOC: EC 17:03
DX: S01.81XA Laceration without foreign body of other part of head, initial encounter (principal); I67.82 Cerebral ischemia; M47.812 Spondylosis without myelopathy or radiculopathy, cervical region; J44.89 Other specified chronic obstructive pulmonary disease; K21.9 Gastro-esophageal reflux disease without esophagitis; F17.200 Nicotine dependence, unspecified, uncomplicated; Z86.59 Personal history of other mental and behavioral disorders; Z79.51 Long term (current) use of inhaled steroids; Z79.899 Other long term (current) drug therapy; Z88.6 Allergy status to analgesic agent; Z23 Encounter for immunization; W18.30XA Fall on same level, unspecified, initial encounter
CPT/HCPCS: 72125; 70450; 90715; 99284; 90471; J2001

== ENCOUNTER → 2023-08-22 | Outpatient (CLI) | payer MEDICARE, OTHER ==
--- NOTE | 2023-08-23 09:21 | CTL ---
EXAMINATION TYPE: CT Low Dose Lung DATE OF EXAM ORDERED: 08/22/2023 COMPARISON: 09/16/2022 HISTORY: . Low Dose CT Lung Screening CT DLP: 64.[address] CTDI: 2.10 mGy IV CONTRAST USED: None. SCREENING VISIT: First visit COMPARISON: None. TECHNIQUE: Low dose computed tomography scan was performed through the chest at 1 millimeter thick se ctions and reconstructed images in the coronal plane at [address] DIAGNOSTIC QUALITY: Satisfactory FINDINGS: LUNG NODULES: Sub-5 mm pulmonary nodules are unchanged. No new nodules present. LUNGS: COPD: Severity: Mild Fibrosis: Severity:None Lymph nodes: None Other findings: None RIGHT PLEURAL SPACE: Effusion: None Calcification: None Thickening: None Pneumothorax: None LEFT PLEURAL SPACE: Effusion: None Calcification: None Thickening: None Pneumothorax: None HEART: Heart Size: Mildly enlarged Coronary calcification: Mild Pericardial effusion: None OTHER FINDINGS: Upper abdomen: No significant abnormality Bony thorax: Degenerative changes Supraclavicular region: No significant abnormalityOther: No significant abnormalityI IMPRESSION: Benign FOLLOW UP CT CHEST RECOMMENDATION: Follow-up screening in one year CT LUNG RAD: LUNG RAD CATEGORY 2 benign appearance and/or behavior
== END | disposition home or self-care (01) ==
LOC: RADCTMAIN 15:15
PROVIDERS: ATTEND Internal Medicine Critical Care Medicine
DX: Z12.2 Encounter for screening for malignant neoplasm of respiratory organs (principal); F17.210 Nicotine dependence, cigarettes, uncomplicated
CPT/HCPCS: 71271

== ENCOUNTER → 2024-08-03 | Outpatient (CLI) | payer MEDICARE, OTHER ==
--- NOTE | 2024-08-03 14:44 | MM ---
Reason for Exam: Screening (asymptomatic). Last screening mammogram was performed 12 month(s) ago. Patient History: Menarche at age 10. First Full-Term at age 26. Postmenopausal. Breast cancer, left, age 47. Previous chest radiation therapy at age 47. Previous chemotherapy at age 47. 2007, Lumpectomy on the Left side. 04/28/2022, Benign US biopsy breast VAD RT on the right side. Prior Study Comparison: 04/28/2022 Right MG diagnostic mammo RT wo CAD, [facility]. 07/15/2022 Bilateral MG 3D diag mammo w/cad AZIZA, [facility]. 07/21/2023 Bilateral MG 3D diag mammo w/cad AZIZA, [facility]. Tissue Density: There are scattered areas of fibroglandular density. Findings: Analyzed By CAD. Left breast surgical clips. Right breast: There is no suspicious group of microcalcifications or new suspicious mass. Benign-appearing calcifications right breast. Left breast: There is no suspicious group of microcalcifications or new suspicious mass. Benign-appearing calcifications left breast. Overall Assessment: Benign, BI-RAD 2 Management: Screening Mammogram of both breasts in [address] [facility] will attempt to contact patient to return for supplemental views and ultrasound if indicated. Patient should continue monthly self-breast exams. A clinical breast exam by your physician is recommended on an annual basis. This exam should not preclude additional follow-up of suspicious palpable abnormalities. Note on Geno scores and lifetime risk: 1. A Geno score greater than 3% is considered moderate risk. If this is the case, consider specialist referral to assess eligibility for a risk reducing agent. 2. If overall lifetime risk for the development of breast cancer is 20% or higher, the patient may qualify for future screening with alternating mammogram and breast MRI. [facility], , 08/03/2024 2:38 PM. Electronically signed and approved by: Ned Heard DO
== END | disposition home or self-care (01) ==
LOC: RADMAMWWP 13:05
PROVIDERS: ATTEND Family Medicine
DX: Z12.31 Encounter for screening mammogram for malignant neoplasm of breast (principal); Z85.3 Personal history of malignant neoplasm of breast; Z78.0 Asymptomatic menopausal state; R92.323 Mammographic fibroglandular density, bilateral breasts
CPT/HCPCS: 77063; 77067

== ENCOUNTER → 2024-08-29 | Outpatient (CLI) | payer MEDICARE, OTHER ==
--- NOTE | 2024-08-29 18:11 | CTL ---
EXAMINATION TYPE: CT Low Dose Lung DATE OF EXAM: 08/29/2024 5:01 PM COMPARISON: 08/22/2023 CLINICAL INDICATION: Female, 63 years old with history of Z12.2 ENCNTR SCREEN CA F17.210 NICOTINE DE PENDENC; personal tobacco use, history of tobacco use. TECHNIQUE: Multiple axial non-contrast scans were obtained from approximately the lung apices through the upper abdomen. Coronal and sagittal reformatted images were obtained. Low dose technique was uti lized. MIP were created on a separate workstation and submitted for review. CT DLP: 79.7 mGycm, Automated exposure control for dose reduction was used. CT Contrast: Contrast used: None Oral contrast used: None FINDINGS: Lack of intravenous contrast and low dose technique limits the evaluation of the vascular and soft ti ssue structures. LUNGS: No evidence of pulmonary fibrosis. No evidence of focal consolidation, pneumothorax or pleural effusion. Centrilobular emphysema changes. Stable traction atelectasis along the left anterior later al chest wall Nodules: RUL: None. RML: None. RLL: None. SNEHA: stable 2 mm series 6 image 20. LLL: Stable subpleuralt 4 mm series 4 image 199 AIRWAY: Patent and unremarkable. HEART: Size within normal limits. MEDIASTINUM: No gross evidence of adenopathy. VASCULATURE: No aortic aneurysm. MUSCULOSKELETAL: Moderate disc degeneration changes are present throughout the thoracolumbar spine. SOFT TISSUES/LYMPH NODES: Postprocedural changes in left breast with calcifications present. LOWER NECK: No significant findings. UPPER ABDOMEN: Metallic leads in the subcutaneous tissues of the back. IMPRESSION: 1. No clinically significant pulmonary nodules. 2. Mild to moderate emphysema. CT LUNG RAD AND CT CHEST RECOMMENDATION: Lung-Rad 2 Benign Appearance or Behavior: Continue annual sc reening with LDCT in 12 months. S Modifier (other clinically significant findings): None Recommend smoking cessation (if current smoker), or continuation of smoking cessation (if prior smoke r). Annual screening for lung cancer with low-dose computed tomography is recommended in adults ages 55 to 77 years who have a 30 pack-year smoking history and currently smoke or have quit within the pa st 15 years. Screening should be discontinued once a person has not smoked for 15 years or develops a health problem that substantially limits life expectancy or the ability or willingness to have curat amanda lung surgery. Lung rads 2021 [email or web address] [facility], , 08/29/2024 6:09 PM
== END | disposition home or self-care (01) ==
LOC: RADCTMAIN 15:57
PROVIDERS: ATTEND Internal Medicine Critical Care Medicine
DX: Z12.2 Encounter for screening for malignant neoplasm of respiratory organs (principal); J43.9 Emphysema, unspecified; F17.210 Nicotine dependence, cigarettes, uncomplicated
CPT/HCPCS: 71271

== ENCOUNTER → 2024-09-14 | Outpatient (CLI) | payer MEDICARE, OTHER ==
[2024-09-14 12:17] VITALS: BP 120/75; PULSE 100; RESP 18; TEMP 98.3
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
== END ==
LOC: WWCWWP 11:25
PROVIDERS: ATTEND Surgery
DX: C50.912 Malignant neoplasm of unspecified site of left female breast (principal); N64.89 Other specified disorders of breast; I10 Essential (primary) hypertension; F32.A Depression, unspecified; M54.9 Dorsalgia, unspecified; R92.8 Other abnormal and inconclusive findings on diagnostic imaging of breast; R07.89 Other chest pain; F17.200 Nicotine dependence, unspecified, uncomplicated; Z88.6 Allergy status to analgesic agent; Z79.899 Other long term (current) drug therapy

== ENCOUNTER 2024-10-30 07:24 | Day surgery (SDC) | payer MEDICARE, OTHER ==
[~2024-10-30 07:24] MED LIST changes: +HYDROmorphone 0.5 MG/0.5 ML SYRINGE IVP PRN; -LACTATED RINGERS 1,000 ML IV SCH; +LIDOCAINE 1% (10MG/ML) FOR IV START INTRADERMA PRN; +ONDANSETRON 4 MG/2 ML VIAL IVP ONE; +Pre Op ABX Message 1 EACH MISC MISCELLANE ONE; +droPERidol 2.5 MG/ML VIAL IVP ONE
[2024-10-30 07:52] VITALS: TEMP 96.9
[2024-10-30] MEDS: DEXAMETHASONE SOD PHOSPHATE 4 MG/ML 1 ML VIAL IV ONE (08:10)
[2024-10-30] MEDS: ACETAMINOPHEN TAB 500 MG TAB PO PRN (08:10)
[2024-10-30] MEDS: HEPARIN SODIUM,PORCINE 5,000 UNIT/ML 1 ML VIAL SQ PRN (08:11)
[2024-10-30] MEDS: LACTATED RINGERS 1,000 ML IV SCH (08:11)
[2024-10-30] MEDS: LACTATED RINGERS 1,000 ML IV ONE (08:21)
[2024-10-30] MEDS: IPRATROPIUM-ALBUTEROL 3 ML NEB INHALATION STA (08:25)
[2024-10-30] MEDS ORDERED: fentaNYL (PF) 50 MCG/ML 2 ML AMP ONE (09:08)
[2024-10-30] MEDS ORDERED: LIDOCAINE 1% INJ 10MG/ML (20 ML MDV) ONE (09:08)
[2024-10-30] MEDS ORDERED: PROPOFOL 10 MG/ML 20 ML VIAL IV ONE (09:08)
[2024-10-30] MEDS ORDERED: PHENYLEPHRINE-0.9% NACL SYG 1,000 MCG/10 ML SYRINGE ONE (09:08)
[2024-10-30] MEDS ORDERED: LIDOCAINE 4% LTA KIT (4 ML) TOPICAL ONE (09:08)
[2024-10-30] MEDS ORDERED: SUCCINYLCHOLINE CHLORIDE 200 MG/10 ML VIAL IV ONE (09:08)
[2024-10-30] MEDS ORDERED: MIDAZOLAM 2 MG/2 ML VIAL ONE (09:08)
[2024-10-30] MEDS ORDERED: ceFAZolin 1 GM/50 ML BAG (PMX) ONE (09:08)
[2024-10-30] MEDS: SODIUM CHLORIDE 0.9% 100 ML with ceFAZolin 2,000 MG IV ONE (09:13)
[2024-10-30] MEDS: LIDOCAINE 1% INJ 10MG/ML (20 ML MDV) SQ ONE ×2 (09:40→10:26)
--- NOTE | 2024-10-30 10:23 | P.BCAON ---
Date of Procedure: 10/30/24 Preoperative Diagnosis: Mass left breast in area of prior radiated lumpectomy site/tender and symptomatic Postoperative Diagnosis: Same Procedure(s) Performed: Left breast lumpectomy, oncoplastic tissue transfer 44 cm Anesthesia: GRECIAA Surgeon: Lizz Jsoe Estimated Blood Loss (ml): 5 IV fluids (ml): 700 Pathology: other (Breast tissue) Condition: stable Disposition: same day Indications for Procedure: Palpable mass left breast at prior lumpectomy site/tender and symptomatic Operative Findings: Dense tissue prior lumpectomy site may be consistent with calcified fat necrosis Description of Procedure: The patient was brought to the operating room and following induction of anesthesia the left breast was prepped and draped in a sterile fashion. An incision was made and carried down to the palpable mass. Surrounding tissue was excised. This appeared to be calcified firm tissue. The area of excision was 4 x 2 cm. The specimen was painted for orientation. The cavity was examined for hemostasis. After we are sure that hemostasis was attained the wound was well irrigated. An inferior pillar 6 x 3 cm was developed. A superior pillar 6 x 3 cm was developed. The pillars were brought together to close the defect. Prior to this titanium clips were placed in the cavity. Total oncoplastic tissue transfer was 44 cm. Surgicel in powder form was placed in the subcutaneous dis section area. The subcutaneous tissue was brought together using 3-0 Vicryl suture. The skin was reapproximated using 4-0 Monocryl and then a knot 4-0 nylon skin suture. 10 cc of 1% lidocaine were used to anesthetize the incision. The patient tolerated the procedure in stable condition. All instrument and sponge counts were correct at the end of the case.
[2024-10-30 12:44] VITALS: BP 125/80; PULSE 92; RESP 16
[2024-10-30] MEDS: IBUPROFEN 600 MG TAB PO STA (12:45)
== END 2024-10-30 13:40 | disposition home or self-care (01) ==
LOC: OR 07:24
PROVIDERS: ATTEND Surgery
DX: N64.1 Fat necrosis of breast (principal); L90.5 Scar conditions and fibrosis of skin; N64.89 Other specified disorders of breast; Z85.3 Personal history of malignant neoplasm of breast; R25.2 Cramp and spasm; I10 Essential (primary) hypertension; F41.9 Anxiety disorder, unspecified; J38.1 Polyp of vocal cord and larynx; R91.1 Solitary pulmonary nodule; J43.9 Emphysema, unspecified; G43.909 Migraine, unspecified, not intractable, without status migrainosus; E78.5 Hyperlipidemia, unspecified; K21.9 Gastro-esophageal reflux disease without esophagitis; F32.A Depression, unspecified; M54.9 Dorsalgia, unspecified; F17.290 Nicotine dependence, other tobacco product, uncomplicated; F12.90 Cannabis use, unspecified, uncomplicated; Z92.21 Personal history of antineoplastic chemotherapy; Z79.899 Other long term (current) drug therapy; Z92.3 Personal history of irradiation
CPT/HCPCS: 88307; 19301; J2250; J0330; J1644; J1100; J0690 ×2; J2003; J3010; J2704; J2371

== ENCOUNTER → 2024-11-09 | Outpatient (CLI) | payer MEDICARE, OTHER ==
[2024-11-09 11:07] VITALS: BP 103/64; PULSE 93; RESP 17; TEMP 97.9
--- NOTE | 2024-11-09 11:21 | P.BCPO ---
Progress Note - Text Progress Note Date: 11/09/24 Patient status post excision of left breast mass on 10-30-24. Pathology scar with fat necrosis. Lungs: Clear Heart: Regular rate and rhythm Incision: It is clean and dry there is a seroma at the surgical site in the left breast Plan: Aspiration seroma Following informed consent the area of concern in the left breast was prepped using alcohol. An 18-gauge needle on a 20 cc syringe was used to aspirate 220 cc of dark fluid. There is no evidence of any infection. There was complete resolution of the seroma. The left breast is slightly erythematous and patient will be given a prescription for antibiotic. Keflex 500 QID Post Op Education - Post Op Education Post Op Education Provided Date: 11/09/24 - Functional Assessment Performed?: Yes (arm abduction) Path Report - Was patient given path report? Path Report Date Given: 11/09/24
== END ==
LOC: WWCWWP 09:56
PROVIDERS: ATTEND Surgery
DX: Z48.817 Encounter for surgical aftercare following surgery on the skin and subcutaneous tissue (principal); F12.90 Cannabis use, unspecified, uncomplicated; Z88.6 Allergy status to analgesic agent

== ENCOUNTER → 2024-11-16 | Outpatient (CLI) | payer MEDICARE, OTHER ==
[2024-11-16 12:14] VITALS: BP 127/80; PULSE 106; RESP 16; TEMP 98.3
--- NOTE | 2024-11-16 12:53 | P.PN ---
Subjective Progress Note Date: 11/16/24 11/09/24 Patient status post excision of left breast mass on 10-30-24. Pathology scar with fat necrosis. She had a left breast lumpectomy in 2007, she had 4 treatments of chemotherapy and 33 radiation treatments. She is trying to stop smoking. Lungs: Clear Heart: Regular rate and rhythm Incision: It is clean and dry there is a seroma at the surgical site in the left breast Plan: Aspiration seroma Following informed consent the area of concern in the left breast was prepped using alcohol. An 18-gauge needle on a 20 cc syringe was used to aspirate 120 cc of dark fluid. There is no evidence of any infection. There was complete resolution of the seroma. The left breast is slightly erythematous and patient will be given a prescription for antibiotic. Keflex 500 QID finished 5 Additional CC's: Ritchie Shoemaker Objective - Vital Signs Vital signs: Vital Signs Temp 98.3 F 11/16/24 12:11 Pulse 106 H 11/16/24 12:11 Resp 16 11/16/24 12:11 BP 127/80 11/16/24 12:11 Pulse Ox 95 11/16/24 12:11 FiO2 Intake & Output 11/15/24 11/16/24 11/16/24 18:59 06:59 18:59 Weight 58.967 kg
== END ==
LOC: WWCWWP 11:51
PROVIDERS: ATTEND Surgery
DX: N64.89 Other specified disorders of breast (principal); Z88.5 Allergy status to narcotic agent

== ENCOUNTER → 2024-11-27 | Outpatient (CLI) | payer MEDICARE, OTHER ==
--- NOTE | 2024-11-27 08:59 | P.PN ---
Subjective Progress Note Date: 11/27/24 11/16/24 11/09/24 Patient status post excision of left breast mass on 10-30-24. Pathology scar with fat necrosis. She had a left breast lumpectomy in 2007, she had 4 treatments of chemotherapy and 33 radiation treatments. She is trying to stop smoking. 11-09-24 `120 cc fluid aspirated from seroma Lungs: Clear Heart: Regular rate and rhythm Incision: It is clean and dry there is a seroma at the surgical site in the left breast Plan: Aspiration seroma dc sutures follow up in two weeks encouraged to stop smoking follow up sooner any concerns Following informed consent the area of concern in the left breast was prepped using alcohol. An 18-gauge needle on a 20 cc syringe was used to aspirate 95 cc of dark fluid. There is no evidence of any infection. There was complete resolution of the seroma. The left breast is slightly erythematous and patient will be given a prescription for antibiotic. Keflex 500 QID finished 5
[2024-11-27 09:19] VITALS: BP 108/76; PULSE 96; RESP 17; TEMP 97.5
== END ==
LOC: WWCWWP 08:01
PROVIDERS: ATTEND Surgery
DX: N64.89 Other specified disorders of breast (principal); F12.90 Cannabis use, unspecified, uncomplicated; Z98.890 Other specified postprocedural states; Z92.21 Personal history of antineoplastic chemotherapy; Z92.3 Personal history of irradiation; Z90.12 Acquired absence of left breast and nipple; Z88.6 Allergy status to analgesic agent

== ENCOUNTER → 2024-12-11 | Outpatient (CLI) | payer MEDICARE, OTHER ==
[2024-12-11 08:27] VITALS: BP 102/65; PULSE 81; RESP 17; TEMP 98.1
--- NOTE | 2024-12-11 08:40 | P.PN ---
Subjective Progress Note Date: 12/11/24 12-11-24 Patient status post excision of left breast mass on 10-30-24. Pathology scar with fat necrosis. She had a left breast lumpectomy in 2007, she had 4 treatments of chemotherapy and 33 radiation treatments. She is trying to stop smoking. She is down to 5 cigarettes/day 11-09-24 120 cc fluid aspirated from seroma 11-27-24 95 cc fluid aspirated 12-11-24 100 cc serous fluid Lungs: Clear Heart: Regular rate and rhythm Incision: It is clean and dry there is a seroma at the surgical site in the left breast Plan: Aspiration seroma follow up in two weeks encouraged to stop smoking follow up sooner any concerns Following informed consent the area of concern in the left breast was prepped using alcohol. An 18-gauge needle on a 20 cc syringe was used to aspirate 100 cc of dark fluid. There is no evidence of any infection. There was complete resolution of the seroma. The left breast is slightly erythematous and patient will be given a prescription for antibiotic. Keflex 500 QID finished 5 Objective - Vital Signs Vital signs: Vital Signs Temp 98.1 F 12/11/24 08:23 Pulse 81 12/11/24 08:23 Resp 17 12/11/24 08:23 BP 102/65 12/11/24 08:23 Pulse Ox 95 12/11/24 08:23 FiO2 Intake & Output 12/10/24 12/11/24 12/11/24 18:59 06:59 18:59 Weight 58.967 kg
== END ==
LOC: WWCWWP 08:06
PROVIDERS: ATTEND Surgery
DX: N64.89 Other specified disorders of breast (principal); N64.1 Fat necrosis of breast; F17.210 Nicotine dependence, cigarettes, uncomplicated; Z98.890 Other specified postprocedural states; Z88.6 Allergy status to analgesic agent

== ENCOUNTER → 2024-12-18 | Outpatient (CLI) | payer MEDICARE ==
--- NOTE | 2024-12-18 15:01 | P.PN ---
Subjective Progress Note Date: 12/18/24 12/18/24 Patient status post excision of left breast mass on 10-30-24. Pathology scar with fat necrosis. She had a left breast lumpectomy in 2007, she had 4 treatments of chemotherapy and 33 radiation treatments. She is trying to stop smoking. She is down to 5 cigarettes/day 11-09-24 120 cc fluid aspirated from seroma 11-27-24 95 cc fluid aspirated 12-11-24 100 cc serous fluid 12-18-24 75 cc serous fluid Lungs: Clear Heart: Regular rate and rhythm Incision: It is clean and dry there is a seroma at the surgical site in the left breast Plan: Aspiration seroma follow up in one weeks encouraged to stop smoking follow up sooner any concerns Following informed consent the area of concern in the left breast was prepped using alcohol. An 18-gauge needle on a 20 cc syringe was used to aspirate 75 cc of dark fluid. There is no evidence of any infection. There was complete r esolution of the seroma. The left breast is slightly erythematous and patient will be given a prescription for antibiotic. Keflex 500 QID finished
[2024-12-18 15:33] VITALS: BP 122/78; PULSE 91; RESP 17; TEMP 97.3
== END ==
LOC: WWCWWP 12:43
PROVIDERS: ATTEND Surgery
DX: N64.89 Other specified disorders of breast (principal); Z88.6 Allergy status to analgesic agent

== ENCOUNTER → 2024-12-25 | Outpatient (CLI) | payer MEDICARE ==
--- NOTE | 2024-12-25 08:24 | P.PN ---
Subjective Progress Note Date: 12/25/24 Patient status post excision of left breast mass on 10-30-24. Pathology scar with fat necrosis. She had a left breast lumpectomy in 2007, she had 4 treatments of chemotherapy and 33 radiation treatments. She is trying to stop smoking. She is down to 5 cigarettes/day 11-09-24 120 cc fluid aspirated from seroma 11-27-24 95 cc fluid aspirated 12-11-24 100 cc serous fluid 12-18-24 75 cc serous fluid 12-25-24 50 cc serous fluid Lungs: Clear Heart: Regular rate and rhythm Incision: It is clean and dry there is a seroma at the surgical site in the left breast Plan: Aspiration seroma follow up in two weeks encouraged to stop smoking follow up sooner any concerns Following informed consent the area of concern in the left breast was prepped using alcohol. An 18-gauge needle on a 20 cc syringe was used to aspirate 50 cc of dark fluid. There is no evidence of any infection. There was complete resolution of the seroma.
[2024-12-25 08:38] VITALS: BP 125/72; PULSE 99; RESP 18; TEMP 97.9
== END ==
LOC: WWCWWP 08:08
PROVIDERS: ATTEND Surgery
DX: N64.89 Other specified disorders of breast (principal); F17.210 Nicotine dependence, cigarettes, uncomplicated; Z98.890 Other specified postprocedural states; Z88.6 Allergy status to analgesic agent

== ENCOUNTER → 2025-01-11 | Outpatient (CLI) | payer MEDICARE ==
[2025-01-11 12:57] VITALS: BP 107/56; PULSE 72; RESP 18; TEMP 97.8
--- NOTE | 2025-01-11 12:57 | P.PN ---
Subjective Progress Note Date: 01/11/25 01-11-25 Patient status post excision of left breast mass on 10-30-24. Pathology scar with fat necrosis. She had a left breast lumpectomy in 2007, she had 4 treatments of chemotherapy and 33 radiation treatments. She is trying to stop smoking. She is down to 5 cigarettes/day 11-09-24 120 cc fluid aspirated from seroma 11-27-24 95 cc fluid aspirated 12-11-24 100 cc serous fluid 12-18-24 75 cc serous fluid 12-25-24 50 cc serous fluid 01-11-25 70 cc serous fluid complete resolution of seroma Lungs: Clear Heart: Regular rate and rhythm Incision: It is clean and dry there is a seroma at the surgical site in the left breast Plan: Aspiration seroma follow up in two weeks encouraged to stop smoking follow up sooner any concerns Following informed consent the area of concern in the left breast was prepped using alcohol. An 18-gauge needle on a 20 cc syringe was used to aspirate 70 cc of dark fluid. There is no evidence of any infection. There was complete resolution of the seroma.
== END ==
LOC: WWCWWP 12:18
PROVIDERS: ATTEND Surgery
DX: N64.89 Other specified disorders of breast (principal); M79.89 Other specified soft tissue disorders; F17.210 Nicotine dependence, cigarettes, uncomplicated; Z98.890 Other specified postprocedural states; Z88.6 Allergy status to analgesic agent